=== PATIENT | male | born 1955 | race Caucasian/White ===

== ENCOUNTER → 2017-04-04 | Outpatient (CLI) | payer MEDICARE ==
--- NOTE | 2017-04-11 12:54 | P.ARTDOP ---
Arterial Doppler LOWER EXTREMITY ARTERIAL DOPPLER: DATE OF SERVICE: 04/04/2017 Reason for study: Suspected PVD. Doppler waveforms: Multiphasic bilaterally throughout. Pulse volume recording: Normal configuration. Pressure gradients: None. Ankle-brachial indices: Greater than 1 bilaterally. Toe pressures: 129 on the right, 125 on the left Impression: Normal study.
== END | disposition home or self-care (01) ==
LOC: RADUSWWP 08:57
PROVIDERS: ATTEND Internal Medicine
DX: I73.9 Peripheral vascular disease, unspecified (principal); Z95.4 Presence of other heart-valve replacement
CPT/HCPCS: 93923

== ENCOUNTER → 2018-03-11 | Outpatient (CLI) | payer MEDICARE ==
[2018-03-11 09:30] LABS: INR 4.3 (<1.2); Prothrombin Time 38.7 sec (9.0-12.0)
== END | disposition home or self-care (01) ==
LOC: LABWHC1 08:51
PROVIDERS: ATTEND Internal Medicine Cardiovascular Disease
DX: Z95.2 Presence of prosthetic heart valve (principal)
CPT/HCPCS: 36415; 85610

== ENCOUNTER 2018-05-11 23:51 | Emergency (ER) | payer MEDICARE ==
--- NOTE | 2018-05-11 23:54 | ED ---
General Adult HPI - General Stated complaint: diabetic issue Time Seen by Provider: 05/11/18 23:54 - History of Present Illness Initial comments: Dru is a 63-year-old insulin-dependent diabetic male who presents the emergency department today for evaluation of altered mental status. Per the patient he used his regular doses of insulin today. He was out hunting throughout the day and maybe didn't eat his usual amount of food. Upon returning home from an unsuccessful hunting trip he does report he drank approximately 12 beers. Patient was drinking with his friend when his friend reported that he became somewhat sleepy and difficult to wake up so he called 911 for evaluation. Upon arrival patient was noted to be hypoglycemic with a blood glucose of only 67, she was given oral dose with significant improvement in his mental status. Patient was also noted to be somewhat hypothermic and admits to having been out in the cold all day hunting. - Related Data Allergies Allergy/AdvReac Type Severity Reaction Status Date / Time No Known Allergies Allergy Verified 05/12/18 01:30 Review of Systems ROS Statement: Those systems with pertinent positive or pertinent negative responses have been documented in the HPI. ROS Other: All systems not noted in ROS Statement are negative. General Exam - General Exam Comments Initial Comments: Physical Exam GENERAL: Patient is well-developed and well-nourished. Patient is nontoxic and well- hydrated and is in no distress. HENT: Normocephalic, Atraumatic. EYES: PERRL, EOMI PULMONARY: Unlabored respirations. No audible rales rhonchi or wheezing was noted. CARDIOVASCULAR: There is a regular rate and rhythm without any murmurs gallops or rubs. ABDOMEN: Soft and nontender with normal bowel sounds. SKIN: Skin is clear with no lesions or rashes and otherwise unremarkable. : Deferred NEUROLOGIC: Patient is alert and oriented x3. Moving all extremities spontaneously MUSCULOSKELETAL: Normal extremities with adequate strength and full range of motion. No lower extremity swelling or edema. No calf tenderness. PSYCHIATRIC: Normal psychiatric evaluation. Limitations: no limitations Course Vital Signs 05/11/18 23:55 Pulse Rate 74 Respiratory 18 Rate Blood Pressure 141/76 O2 Sat by Pulse 100 Oximetry EKG Findings - EKG Comments: EKG Findings:: EKG obtained at 12:42 AM, rate is 70, rhythm is sinus, there is left axis deviation with LVH Jenny normal intervals, DE 186, QRS 112, QTC 466. There are no acute ST elevations or depressions no evidence of acute ischemia or infarction. Medical Decision Making - Medical Decision Making The patient was seen and evaluated, history was obtained from the patient, EMS and the patient's son at bedside Patient's son at bedside states that a few years ago the patient's brother had a stroke while they were hunting and [place] to obtain medical care and subsequently . Therefore the patient does have some high anxiety about hunting trips. Patient has been drinking, not eating enough calories in using his insulin. He did have an episode of altered mental status and was noted to be hypoglycemic. Altered mental status resolved with oral glucose. Labs and imaging were ordered IV fluids infusing Labs with no significant abnormalities, patient remained awake, alert, oriented without any complaints or his ED stay. Repeat blood glucose was again stable. At this time I feel the patient is stable for discharge home. All questions pertaining to care were answered the best my ability, return parameters were discussed and the patient was discharged home in stable condition. - Lab Data Result diagrams: 05/12/18 00:40 05/12/18 00:40 Lab Results 05/12/18 05/12/18 05/12/18 Range/Units 00:40 00:40 00:40 WBC 12.5 H (3.8-10.6) k/uL RBC 4.52 (4.30-5.90) m/uL Hgb 14.9 (13.0-17.5) gm/dL Hct 43.7 (39.0-53.0) % MCV 96.7 (80.0-100.0) fL MCH 33.0 (25.0-35.0) pg MCHC 34.1 (31.0-37.0) g/dL RDW 13.9 (11.5-15.5) % Plt Count 233 (150-450) k/uL Neutrophils % 84 % Lymphocytes % 7 % Monocytes % 7 % Eosinophils % 1 % Basophils % 0 % Neutrophils # 10.6 H (1.3-7.7) k/uL Lymphocytes # 0.9 L (1.0-4.8) k/uL Monocytes # 0.9 (0-1.0) k/uL Eosinophils # 0.1 (0-0.7) k/uL Basophils # 0.0 (0-0.2) k/uL PT 27.6 H (9.0-12.0) sec INR 3.1 H (<1.2) APTT 32.2 H (22.0-30.0) sec Sodium 134 L (137-145) mmol/L Potassium 4.0 (3.5-5.1) mmol/L Chloride 101 (98-107) mmol/L Carbon Dioxide 21 L (22-30) mmol/L Anion Gap 12 mmol/L BUN 23 H (9-20) mg/dL Creatinine 1.08 (0.66-1.25) mg/dL Est GFR (CKD-EPI)AfAm 83 (>60 ml/min/1.73 sqM) Est GFR (CKD-EPI)NonAf 72 (>60 ml/min/1.73 sqM) Glucose 106 H (74-99) mg/dL POC Glucose (mg/dL) (75-99) mg/dL POC Glu Blood Bank Laboratory Technologist ID Calcium 8.6 (8.4-10.2) mg/dL Total Bilirubin 0.4 (0.2-1.3) mg/dL AST 36 (17-59) U/L ALT 39 (21-72) U/L Alkaline Phosphatase 101 (38-126) U/L Troponin I (0.000-0.034) ng/mL Total Protein 6.5 (6.3-8.2) g/dL Albumin 4.0 (3.5-5.0) g/dL 05/12/18 05/12/18 05/12/18 Range/Units 00:40 00:45 02:37 WBC (3.8-10.6) k/uL RBC (4.30-5.90) m/uL Hgb (13.0-17.5) gm/dL Hct (39.0-53.0) % MCV (80.0-100.0) fL MCH (25.0-35.0) pg MCHC (31.0-37.0) g/dL RDW (11.5-15.5) % Plt Count (150-450) k/uL Neutrophils % % Lymphocytes % % Monocytes % % Eosinophils % % Basophils % % Neutrophils # (1.3-7.7) k/uL Lymphocytes # (1.0-4.8) k/uL Monocytes # (0-1.0) k/uL Eosinophils # (0-0.7) k/uL Basophils # (0-0.2) k/uL PT (9.0-12.0) sec INR (<1.2) APTT (22.0-30.0) sec Sodium (137-145) mmol/L Potassium (3.5-5.1) mmol/L Chloride (98-107) mmol/L Carbon Dioxide (22-30) mmol/L Anion Gap mmol/L BUN (9-20) mg/dL Creatinine (0.66-1.25) mg/dL Est GFR (CKD-EPI)AfAm (>60 ml/min/1.73 sqM) Est GFR (CKD-EPI)NonAf (>60 ml/min/1.73 sqM) Glucose (74-99) mg/dL POC Glucose (mg/dL) 117 H 152 H (75-99) mg/dL POC Glu Blood Bank Laboratory Technologist Bisi Farr Joanna Calcium (8.4-10.2) mg/dL Total Bilirubin (0.2-1.3) mg/dL AST (17-59) U/L ALT (21-72) U/L Alkaline Phosphatase (38-126) U/L Troponin I 0.023 (0.000-0.034) ng/mL Total Protein (6.3-8.2) g/dL Albumin (3.5-5.0) g/dL Disposition Clinical Impression: Hypoglycemia associated with diabetes Disposition: HOME SELF-CARE Condition: Good Instructions: Hypoglycemia in a Person with Diabetes (ED) Is patient prescribed a controlled substance at d/c from ED?: No Referrals: Gino Dang MD [Primary Care Provider] - 1-2 days
[2018-05-12 00:21] VITALS: BP 141/76; PULSE 74
[2018-05-12] MEDS ORDERED: SODIUM CHLORIDE 0.9% 1,000 ML IV ONE (00:23)
[2018-05-12 00:49] LABS: Glucose,Whole Blood 117 mg/dL (75-99)
[2018-05-12 00:58] LABS: Basophils % (A) 0 %; Eosinophils # (A) 0.1 k/uL (0-0.7); Eosinophils % (A) 1 %; HCT 43.7 % (39.0-53.0); HGB 14.9 gm/dL (13.0-17.5); Lymphocytes # (A) 0.9 k/uL (1.0-4.8); Lymphocytes % (A) 7 %; MCHC 34.1 g/dL (31.0-37.0); MCV 96.7 fL (80.0-100.0); Mean Platelet Volume 6.8; Monocytes # (A) 0.9 k/uL (0-1.0); Monocytes % (A) 7 %; Neutrophils # (A) 10.6 k/uL (1.3-7.7); Neutrophils % (A) 84 %; Platelet Count 233 k/uL (150-450); RBC 4.52 m/uL (4.30-5.90); RDW 13.9 % (11.5-15.5); WBC 12.5 k/uL (3.8-10.6)
[2018-05-12 00:59] LABS: INR 3.1 (<1.2); Prothrombin Time 27.6 sec (9.0-12.0)
[2018-05-12 01:00] LABS: Calcium 8.6 mg/dL (8.4-10.2); Partial Thromboplastin Time 32.2 sec (22.0-30.0); Total Bilirubin 0.4 mg/dL (0.2-1.3); Total Protein 6.5 g/dL (6.3-8.2)
[2018-05-12 02:51] LABS: Glucose,Whole Blood 152 mg/dL (75-99)
[2018-05-12 03:16] VITALS: RESP 17
[2018-05-12 03:17] VITALS: TEMP 97.6
== END 2018-05-12 03:10 | disposition home or self-care (01) ==
LOC: EC 23:51
DX: E11.649 Type 2 diabetes mellitus with hypoglycemia without coma (principal); Z79.4 Long term (current) use of insulin
CPT/HCPCS: 36415; 80053; 84484; 85025; 85610; 85730; 93005; 96360; 99285

== ENCOUNTER → 2018-12-30 | Outpatient (CLI) | payer MEDICARE ==
[2018-12-30 11:31] LABS: HGB 14.4 gm/dL (13.0-17.5); MCH 31.4 pg (25.0-35.0); MCHC 33.4 g/dL (31.0-37.0); Mean Platelet Volume 7.2; Platelet Count 232 k/uL (150-450); RBC 4.58 m/uL (4.30-5.90); RDW 15.1 % (11.5-15.5)
[2018-12-30 11:44] LABS: INR 3.9 (<1.2); Prothrombin Time 37.1 sec (9.0-12.0)
[2018-12-30 16:25] LABS: African American GFR (CKD) 73.1 (60.0-200.0); Albumin/Globulin Ratio 2.35 (1.60-3.17); Calcium 9.3 mg/dL (8.7-10.3); Globulin 1.7 g/dL (1.6-3.3); LDL Cholesterol,Calculated 86.6 mg/dL (0.0-131.0); Potassium 5.1 mmol/L (3.5-5.5); Total Bilirubin 0.5 mg/dL (0.2-1.2); Total Protein 5.7 g/dL (6.2-8.2); VLDL Calculation 34.4 mg/dL (5.00-40.00)
== END | disposition home or self-care (01) ==
LOC: LABWHC1 10:29
PROVIDERS: ATTEND Internal Medicine Cardiovascular Disease
DX: E78.2 Mixed hyperlipidemia (principal); I25.10 Atherosclerotic heart disease of native coronary artery without angina pectoris
CPT/HCPCS: 36415; 80053; 80061; 82550; 85027; 85610

== ENCOUNTER → 2022-07-18 | Outpatient (CLI) | payer MEDICARE ==
--- NOTE | 2022-07-18 14:58 | P.SLEEP ---
History of Present Illness H&P Date: 07/18/22 Chief Complaint: Sleep apnea This is a 67-year-old male patient who was referred to me by his primary care physician due to concerns of sleep apnea. At the same time, his credit portfolio manager wanted him to have a sleep evaluation based on his history of cardiac disease and valvular heart disease. In summary, this patient is known to have loud snoring. He has been sleeping alone as the patient is and were not sure if there are any apneas occurring at nighttime during sleep. He wakes up excessively fatigued and sleepy and at times he grinds on his teeth and he wakes up with a dry mouth. He goes to bed at around 11 PM and he wakes up 4:30 AM in the morning. He averages around 5 hours of sleep. Nevertheless, he takes naps during the day and he averages approximately 1 or 2 naps and these are long naps that may last up to one hour. It takes a few minutes to fall asleep. No sleep paralysis. No hallucinations. No cataplexy. He is morbidly obese and is trying to lose weight. He has lost around 25 pounds over this past 1 year. The patient has no restlessness and lower extremities. No body aches or pains. No anxiety. No depression. Some trace edema in lower extremities and the patient is maintained on diuretics. He has been waking up a few times the middle of the night for urination. His current Magnet score is at 17 and the patient has no history of any motor vehicle accident because of feeling drowsy or sleepy. He is currently retired. Review of Systems Constitutional: Reports daytime sleepiness, Reports fatigue, Reports weight loss Eyes: denies as per HPI, denies blurred vision, denies bulging eye, denies decreased vision, denies diplopia, denies discharge, denies dry eye, denies irritation, denies itching, denies pain, denies photophobia, denies loss of peripheral vision, denies loss of vision, denies tunnel vision/blind spots Ears: deny: decreased hearing, ear discharge, earache, tinnitus Ears, nose, mouth and throat: Reports as per HPI Breasts: absent: as per HPI, gynecomastia Cardiovascular: Reports as per HPI, Reports dyspnea on exertion Respiratory: Reports snoring Gastrointestinal: Reports as per HPI Genitourinary: Reports as per HPI Musculoskeletal: Reports as per HPI Musculoskeletal: absent: ankle pain, ankle stiffness, ankle swelling Integumentary: Reports as per HPI Neurological: Reports as per HPI Psychiatric: Reports as per HPI Endocrine: Reports as per HPI Hematologic/Lymphatic: Reports as per HPI Allergic/Immunologic: Reports as per HPI Past Medical History Past Medical History: Diabetes Mellitus, Hypertension, Renal Disease (Chronic stage III kidney disease), Thyroid Disorder Additional Past Medical History / Comment(s): History of aortic replacement/mechanical valve and his surgery was done back in the year 1999, gout, obesity, hypertension, hyperlipidemia, hypothyroidism History of Any Multi-Drug Resistant Organisms: None Reported Additional Past Surgical History / Comment(s): Aortic Heart valve replacement 1999, pericardiocentesis, varicose vein stripping from the legs Past Psychological History: No Psychological Hx Reported Past Alcohol Use History: Occasional Past Drug Use History: None Reported Medications and Allergies Home Medications and Allergies Comment(s): Lantus insulin along with NovoLog sliding scale coverage Levothyroxine 25 g by mouth daily Allopurinol 300 mg by mouth daily Norvasc 10 mg by mouth daily Labetalol 300 mg by mouth daily Hydrochlorothiazide 25 mg by mouth daily Singulair 10 mg by mouth daily Olmesartan 40 mg by mouth daily pravastatin 20 mg by mouth daily hydralazine 25 mg by mouth daily Lasix 40 mg by mouth daily Coumadin 5 mg by mouth daily Allergies Allergy/AdvReac Type Severity Reaction Status Date / Time No Known Allergies Allergy Verified 05/12/18 01:30 Physical Exam BP is 145 or 64 with a pulse of 76 and respiration of 16 and the patient has a temperature of 97.9 and oxygen saturation 97%. Neck is 19 inches, Magnet score is at 17, body weight is 273 pounds and a body mass index is 38. The patient appeared well nourished and normally developed. Vital signs as documented. Head exam is unremarkable. No scleral icterus or corneal arcus noted. Neck is without jugular venous distension, thyromegaly, or carotid bruits. Carotid upstrokes are brisk bilaterally. Patient has a Mallampati class IV with significant crowding of the posterior pharynx Lungs are clear to auscultation and percussion. Cardiac exam reveals the PMI to be normally sized and situated. Rhythm is regular. First and second heart sounds normal. No murmurs, rubs or gallops. The patient has an aortic valve click related to a mechanical aortic valve. Abdominal exam reveals normal bowel sounds, no masses, no organomegaly and no aortic enlargement. Extremities are nonedematous and both femoral and pedal pulses are normal.Examination of the skin revealed no evidence of significant rashes, suspicious appearing nevi or other concerning lesions.Neurologically, the patient is awake and alert and the patient does not have any focal neurological deficit. Cranial nerves are essentially intact. Assessment and Plan Plan: Chronic hypersomnia along with loud snoring, obesity and significant crowding of the posterior pharynx and a Mallampati class IV and a high clinical likelihood for obstructive sleep apnea. 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 and stage III chronic kidn ey disease History of aortic valve replacement and the patient has a mechanical aortic valve in place maintain on left lung and the coagulation with warfarin Diabetes mellitus Hypertension Gout Hypothyroidism Plan Encourage weight loss Optimize sleep hygiene measures Avoid taking naps during the day and consolidate sleeping hours at nighttime only Continue cardiac medications Titrate control of blood sugars Screening polysomnogram to evaluate this patient for obstructive sleep apnea and treat accordingly We'll continue to follow Sleep Note - Sleep Note Sleep Note: Temperature: Pulse Rate: Respiratory Rate: Blood Pressure: SpO2: Height: Weight: BMI: Neck Circumference:
== END ==
LOC: SLEEP 13:39
PROVIDERS: ATTEND Internal Medicine Critical Care Medicine
DX: G47.10 Hypersomnia, unspecified (principal); E66.9 Obesity, unspecified; E11.22 Type 2 diabetes mellitus with diabetic chronic kidney disease; N18.30 Chronic kidney disease, stage 3 unspecified; Z86.79 Personal history of other diseases of the circulatory system; I12.9 Hypertensive chronic kidney disease with stage 1 through stage 4 chronic kidney disease, or unspecified chronic kidney disease; M10.9 Gout, unspecified; E03.9 Hypothyroidism, unspecified; Z68.38 Body mass index [BMI] 38.0-38.9, adult; E78.5 Hyperlipidemia, unspecified; Z79.4 Long term (current) use of insulin; Z79.890 Hormone replacement therapy
CPT/HCPCS: 99202

== ENCOUNTER 2023-03-31 16:26 | Observation (INO) | payer MEDICARE ==
--- NOTE | 2023-03-31 16:59 | ED ---
General Adult HPI - General Chief complaint: Syncope Stated complaint: Syncope Time Seen by Provider: 03/31/23 16:30 Source: patient, EMS, RN notes reviewed Mode of arrival: EMS Limitations: no limitations - History of Present Illness Initial comments: Patient is a pleasant 67-year-old male presenting to the emergency department following a syncopal episode. Episode occurred while he was sitting down at a table with friends. Patient does admit to drinking some alcohol. Patient woke up on the floor. Patient states he drank about 5 beers which is somewhat a large amount for him. Patient denies any injury. No headache. No confusion. No chest or back pain. No abdominal pain or dyspnea. No history of similar symptoms previously. patient states he was sweaty after the episode. - Related Data Allergies Allergy/AdvReac Type Severity Reaction Status Date / Time No Known Allergies Allergy Verified 03/31/23 16:49 Review of Systems ROS Statement: Those systems with pertinent positive or pertinent negative responses have been documented in the HPI. ROS Other: All systems not noted in ROS Statement are negative. Constitutional: Denies: fever Eyes: Denies: eye pain ENT: Denies: ear pain Respiratory: Denies: dyspnea Cardiovascular: Denies: chest pain Musculoskeletal: Denies: back pain Neurological: Denies: headache, weakness, confusion Past Medical History Past Medical History: Diabetes Mellitus, Hypertension, Renal Disease, Thyroid Disorder Additional Past Medical History / Comment(s): History of aortic replacement/mechanical valve and his surgery was done back in the year 1999, gout, obesity, hypertension, hyperlipidemia, hypothyroidism History of Any Multi-Drug Resistant Organisms: None Reported Additional Past Surgical History / Comment(s): Aortic Heart valve replacement 1999, pericardiocentesis, varicose vein stripping from the legs Past Psychological History: No Psychological Hx Reported Past Alcohol Use History: Occasional Past Drug Use History: None Reported General Exam Limitations: no limitations General appearance: alert, in no apparent distress Head exam: Present: atraumatic, normocephalic Eye exam: Present: normal appearance, PERRL, EOMI ENT exam: Present: normal oropharynx Neck exam: Present: normal inspection. Absent: tenderness Respiratory exam: Present: normal lung sounds bilaterally Cardiovascular Exam: Present: regular rate, normal rhythm, systolic murmur Expanded Peripheral pulses: 2+: Radial (R), Radial (L), Dorsalis Pedis (R), Dorsalis Pedis (L) GI/Abdominal exam: Present: soft. Absent: tenderness Extremities exam: Present: normal inspection. Absent: pedal edema, calf tenderness Neurological exam: Present: alert, oriented X3, CN II-XII intact. Absent: motor sensory deficit Expanded Neurological exam: Present: protecting the airway Patient oriented to: Present: person, place, time Speech: Present: fluid speech Cranial nerves: EOM's Intact: Normal Motor strength exam: RUE: 5, LUE: 5, RLE: 5, LLE: 5 Eye Response: (4) open spontaneously Motor Response: (6) obeys commands Verbal Response: (5) oriented Psychiatric exam: Present: normal affect, normal mood Skin exam: Present: normal color Course Vital Signs 03/31/23 03/31/23 03/31/23 16:45 17:00 17:30 Temperature 97.8 F Pulse Rate 84 83 89 Respiratory 18 19 20 Rate Blood Pressure 125/52 125/52 128/55 O2 Sat by Pulse 95 96 98 Oximetry 03/31/23 03/31/23 18:00 18:30 Temperature Pulse Rate 88 88 Respiratory 20 19 Rate Blood Pressure 136/63 137/66 O2 Sat by Pulse 97 98 Oximetry EKG Findings - EKG Results: EKG: interpreted by ERMD (Left axis.), sinus rhythm, normal QRS, normal ST/T Medical Decision Making - Medical Decision Making Was pt. sent in by a medical professional or institution (, PA, BAG[employer]ER, urgent care, hospital, or longterm...) When possible be specific @ -No Did you speak to anyone other than the patient for history (EMS, parent, family, police, friend...)? What history was obtained from this source @ -No Did you review nursing and triage notes (agree or disagree)? Why? @ -I reviewed and agree with nursing and triage notes Were old charts reviewed (outside hosp., previous admission, EMS record, old EKG, old radiological studies, urgent care reports/EKG's, longterm records)? Report findings @ -Previous labs reviewed from previous visits and admissions Differential Diagnosis (chest pain, altered mental status, abdominal pain women, abdominal pain men, vaginal bleeding, weakness, fever, dyspnea, syncope, headache, dizziness, GI bleed, back pain, seizure, CVA, palpatations, mental health, musculoskeletal)? @ -Differential Syncope: Valvular disease, hypertrophic cardiomyopathy, pulmonary embolism, tamponade, tachycardia, bradycardia, [place], hypovolemia, hemorrhage, dissection, anemia, intracranial hemorrhage, seizure, hypoglycemia, carbon monoxide poisoning, this is not meant to be an all-inclusive list. EKG interpreted by me (3pts min.). @ -As above X-rays interpreted by me (1pt min.). @ -Chest x-ray without acute abnormality CT interpreted by me (1pt min.). @ -Report reviewed U/S interpreted by me (1pt. min.). @ -None done What testing was considered but not performed or refused? (CT, X-rays, U/S, labs)? Why? @ -None What meds were considered but not given or refused? Why? @ -None Did you discuss the management of the patient with other professionals (professionals i.e. , PA, B[employer]ER, lab, RT, psych nurse, social sciences chair, prisoner classification interviewer, teacher, public affairs officer, skilled nursing case manager)? Give summary @ -Case was discussed with practitioner Kimberly Enciso who will admit with Dr. Lu, covering for Dr. Dang, time. She does not feel consults needed at this time. Was smoking cessation discussed for >3mins.? @ -No Was critical care preformed (if so, how long)? @ -No Were there social determinants of health that impacted care today? How? (Homelessness, low income, unemployed, alcoholism, drug addiction, transportation, low edu. Level, literacy, decrease access to med. care, detention, rehab)? @ -No Was there de-escalation of care discussed even if they declined (Discuss DNR or withdrawal of care, Hospice)? DNR status @ -No What co-morbidities impacted this encounter? (DM, HTN, Smoking, COPD, CAD, Cancer, CVA, ARF, Chemo, Hep., AIDS, mental health diagnosis, sleep apnea, morbid obesity)? @ -None Was patient admitted / discharged? Hospital course, mention meds given and route, prescriptions, significant lab abnormalities, going to OR and other p ertinent info. @ -Patient reevaluated. Patient and family updated. Patient has prerenal azotemia and syncope. Patient will be hydrated and admitted. Admission orders written. Undiagnosed new problem with uncertain prognosis? @ -No Drug Therapy requiring intensive monitoring for toxicity (Heparin, Nitro, Insulin, Cardizem)? @ -No Were any procedures done? @ -No Diagnosis/symptom? @ -Syncope, prerenal azotemia Acute, or Chronic, or Acute on Chronic? @ -Acute, acute Uncomplicated (without systemic symptoms) or Complicated (systemic symptoms)? @ -default Side effects of treatment? @ -No Exacerbation, Progression, or Severe Exacerbation? @ -No Poses a threat to life or bodily function? How? (Chest pain, [place], [place], pneumonia, PE, COPD, DKA, ARF, appy, cholecystitis, CVA, Diverticulitis, Homicidal, Suicidal, threat to staff... and all critical care pts) @ -No - Lab Data Result diagrams: 03/31/23 17:00 03/31/23 17:00 Lab Results 03/31/23 03/31/23 03/31/23 Range/Units 17:00 17:00 17:00 WBC 8.0 (3.8-10.6) k/uL RBC 2.67 L (4.30-5.90) m/uL Hgb 9.0 L (13.0-17.5) gm/dL Hct 26.4 L (39.0-53.0) % MCV 99.1 (80.0-100.0) fL MCH 33.7 (25.0-35.0) pg MCHC 34.0 (31.0-37.0) g/dL RDW 14.7 (11.5-15.5) % Plt Count 181 (150-450) k/uL MPV 8.2 Neutrophils % 83 % Lymphocytes % 11 % Monocytes % 5 % Eosinophils % 1 % Basophils % 0 % Neutrophils # 6.6 (1.3-7.7) k/uL Lymphocytes # 0.9 L (1.0-4.8) k/uL Monocytes # 0.4 (0-1.0) k/uL Eosinophils # 0.1 (0-0.7) k/uL Basophils # 0.0 (0-0.2) k/uL Macrocytosis Slight PT (9.0-12.0) sec INR (<1.2) APTT (22.0-30.0) sec D-Dimer (<0.60) mg/L FEU Sodium 137 (137-145) mmol/L Potassium 4.5 (3.5-5.1) mmol/L Chloride 101 (98-107) mmol/L Carbon Dioxide 23 (22-30) mmol/L Anion Gap 13 mmol/L BUN 82 H (9-20) mg/dL Creatinine 2.76 H (0.66-1.25) mg/dL Est GFR (CKD-EPI)AfAm 26 (>60 ml/min/1.73 sqM) Est GFR (CKD-EPI)NonAf 22 (>60 ml/min/1.73 sqM) Glucose 132 H (74-99) mg/dL Calcium 9.0 (8.4-10.2) mg/dL Magnesium 2.0 (1.6-2.3) mg/dL Total Bilirubin 0.4 (0.2-1.3) mg/dL AST 25 (17-59) U/L ALT 37 (4-49) U/L Alkaline Phosphatase 95 (38-126) U/L Troponin I 0.016 (0.000-0.034) ng/mL Total Protein 6.2 L (6.3-8.2) g/dL Albumin 4.1 (3.5-5.0) g/dL Serum Alcohol mg/dL 03/31/23 03/31/23 Range/Units 17:49 18:27 WBC (3.8-10.6) k/uL RBC (4.30-5.90) m/uL Hgb (13.0-17.5) gm/dL Hct (39.0-53.0) % MCV (80.0-100.0) fL MCH (25.0-35.0) pg MCHC (31.0-37.0) g/dL RDW (11.5-15.5) % Plt Count (150-450) k/uL MPV Neutrophils % % Lymphocytes % % Monocytes % % Eosinophils % % Basophils % % Neutrophils # (1.3-7.7) k/uL Lymphocytes # (1.0-4.8) k/uL Monocytes # (0-1.0) k/uL Eosinophils # (0-0.7) k/uL Basophils # (0-0.2) k/uL Macrocytosis PT 25.9 H (9.0-12.0) sec INR 2.7 H (<1.2) APTT 30.9 H (22.0-30.0) sec D-Dimer 0.38 (<0.60) mg/L FEU Sodium (137-145) mmol/L Potassium (3.5-5.1) mmol/L Chloride (98-107) mmol/L Carbon Dioxide (22-30) mmol/L Anion Gap mmol/L BUN (9-20) mg/dL Creatinine (0.66-1.25) mg/dL Est GFR (CKD-EPI)AfAm (>60 ml/min/1.73 sqM) Est GFR (CKD-EPI)NonAf (>60 ml/min/1.73 sqM) Glucose (74-99) mg/dL Calcium (8.4-10.2) mg/dL Magnesium (1.6-2.3) mg/dL Total Bilirubin (0.2-1.3) mg/dL AST (17-59) U/L ALT (4-49) U/L Alkaline Phosphatase (38-126) U/L Troponin I (0.000-0.034) ng/mL Total Protein (6.3-8.2) g/dL Albumin (3.5-5.0) g/dL Serum Alcohol <10 mg/dL Disposition Clinical Impression: Prerenal azotemia, Syncope Disposition: ADMITTED IP TO THIS HOSP Is patient prescribed a controlled substance at d/c from ED?: No Referrals: Gino Dang MD [Primary Care Provider] - 1-2 days Time of Disposition: 19:37
[2023-03-31 17:11] LABS: Basophils % (A) 0 %; Eosinophils # (A) 0.1 k/uL (0-0.7); Eosinophils % (A) 1 %; HCT 26.4 % (39.0-53.0); Lymphocytes # (A) 0.9 k/uL (1.0-4.8); Lymphocytes % (A) 11 %; MCH 33.7 pg (25.0-35.0); MCV 99.1 fL (80.0-100.0); Macrocytosis Slight; Mean Platelet Volume 8.2; Monocytes # (A) 0.4 k/uL (0-1.0); Monocytes % (A) 5 %; Neutrophils # (A) 6.6 k/uL (1.3-7.7); Neutrophils % (A) 83 %; Platelet Count 181 k/uL (150-450); RBC 2.67 m/uL (4.30-5.90); RDW 14.7 % (11.5-15.5)
[2023-03-31 17:25] LABS: ALT 37 U/L (4-49); AST 25 U/L (17-59); African American GFR (CKD) 26 (>60 ml/min/1.73 sqM); Albumin 4.1 g/dL (3.5-5.0); Alkaline Phosphatase 95 U/L (38-126); Anion Gap 13 mmol/L; Blood Urea Nitrogen 82 mg/dL (9-20); Carbon Dioxide 23 mmol/L (22-30); Chloride 101 mmol/L (98-107); Glucose 132 mg/dL (74-99); Non-African American GFR(CKD) 22 (>60 ml/min/1.73 sqM); Potassium 4.5 mmol/L (3.5-5.1); Sodium 137 mmol/L (137-145); Total Bilirubin 0.4 mg/dL (0.2-1.3); Total Protein 6.2 g/dL (6.3-8.2)
--- NOTE | 2023-03-31 17:39 | CT ---
EXAMINATION TYPE: CT brain wo con DATE OF EXAM: 03/31/2023 COMPARISON: None HISTORY: Syncope with a family history of stroke. CT DLP: 1303.4 mGycm Automated exposure control for dose reduction was used. FINDINGS: The ventricles, basal cisterns and sulci over the convexities within normal limits and there is no ma ss effect or shift of midline structures. No abnormal density is seen throughout the brain parenchyma and there is no acute intra or extra-axia l hemorrhage. The posterior fossa including the brainstem, fourth ventricle and cerebellar pontine angles appear no rmal. The intraorbital contents appear normal and symmetric. Visualized paranasal sinuses and mastoid air cells are well aerated although there is mild mucosal in flammation in the maxillary sinuses. IMPRESSION: 1. No acute bleed or mass effect. 2. Mild chronic sinusitis of the maxillary sinuses.
[2023-03-31 18:14] LABS: INR 2.7 (<1.2); Partial Thromboplastin Time 30.9 sec (22.0-30.0); Prothrombin Time 25.9 sec (9.0-12.0)
--- NOTE | 2023-03-31 18:31 | XR ---
EXAMINATION TYPE: XR chest 2V DATE OF EXAM: 03/31/2023 5:14 PM CLINICAL INDICATION:Male, 67 years old with history of syncope; [facility] COMPARISON: None. TECHNIQUE: XR chest 2V Frontal and lateral views of the chest. FINDINGS: Lungs/Pleura: Lung volumes are slightly low without evidence for focal airspace consolidation, sizabl e effusion, or pneumothorax. Pulmonary vascularity: Unremarkable. Heart/mediastinum: Heart size upper limits of normal. Unremarkable mediastinal contours. Musculoskeletal: Multiple intact-appearing sternotomy wires. Multilevel degenerative changes of the s pine. Mild degenerative changes of the shoulders. No definite acute osseous abnormality evident. Other findings: None. Lines/Tubes: None. IMPRESSION: No evidence of an acute cardiopulmonary abnormality.
[2023-03-31] MEDS ORDERED: NALOXONE 0.4 MG/ML 1 ML VIAL IV PRN (19:38)
[2023-03-31] MEDS: SODIUM CHLORIDE 0.9% 1,000 ML IV SCH (20:59)
[2023-03-31] MEDS ORDERED: hydrALAZINE HCL 25 MG TAB PO SCH (22:00)
[2023-03-31] MEDS ORDERED: DEXTROSE 50% SYRINGE 50 ML IVP PRN ×2 (22:12)
[2023-03-31] MEDS: LABETALOL 100 MG TAB PO SCH (22:42)
[2023-03-31 22:43] LABS: Glucose,Whole Blood 143 mg/dL (70-110)
[2023-04-01] MEDS: SODIUM CHLORIDE 0.9% 1,000 ML IV SCH ×3 (05:06→14:45)
[2023-04-01 06:04] LABS: Glucose,Whole Blood 203 mg/dL (70-110)
[2023-04-01] MEDS: INSULIN ASPART (NovoLOG) 100 UNIT/ML VIAL SQ SCH ×4 (06:32→21:32)
[2023-04-01] MEDS: MONTELUKAST 10 MG TAB PO SCH (08:58)
[2023-04-01] MEDS: allopurinoL 300 MG TAB PO SCH (08:58)
[2023-04-01] MEDS: PRAVASTATIN SODIUM 20 MG TAB PO SCH (08:58)
[2023-04-01] MEDS: LEVOTHYROXINE 25 MCG TAB PO SCH (08:58)
[2023-04-01] MEDS: LABETALOL 100 MG TAB PO SCH ×2 (08:58→20:29)
[2023-04-01] MEDS ORDERED: amLODIPine 5 MG TAB PO SCH (09:00)
[2023-04-01 09:45] LABS: ALT 30 U/L (10-49); AST 16 U/L (14-35); Albumin 3.8 d/dL (3.8-4.9); Albumin/Globulin Ratio 2.71 Ratio (1.60-3.17); Alkaline Phosphatase 98 U/L (41-126); BUN/Creat Ratio 33.08 Ratio (12.00-20.00); Blood Urea Nitrogen 79.4 mg/dL (9.0-27.0); Calcium 8.6 mg/dL (8.7-10.3); Carbon Dioxide 25.7 mmol/L (21.6-31.8); Chloride 104 mmol/L (96-109); Globulin 1.4 d/dL (1.6-3.3); Glucose 176 mg/dL (70-110); Potassium 4.4 mmol/L (3.5-5.5); Sodium 140 mmol/L (135-145); Total Bilirubin 0.2 mg/dL (0.3-1.2); Total Protein 5.2 d/dL (6.2-8.2)
[2023-04-01 09:50] LABS: Basophils # (A) 0.04 X 10*3/uL (0.00-0.10); Basophils % (A) 0.6 %; Eosinophils # (A) 0.12 X 10*3/uL (0.04-0.35); Eosinophils % (A) 1.7 %; HCT 25.3 % (39.6-50.0); HGB 8.1 d/dL (13.0-17.0); Lymphocytes # (A) 0.98 X 10*3/uL (0.90-5.00); Lymphocytes % (A) 13.9 %; MCH 32.5 pg (27.0-32.0); MCV 101.6 FL (80.0-97.0); Mean Platelet Volume 11.2 FL (9.5-12.2); Monocytes # (A) 0.65 X 10*3/uL (0.20-1.00); Monocytes % (A) 9.2 %; NRBC Per 100 WBC 0 X 10*3/uL (0.00-0.01); Neutrophils # (A) 5.24 X 10*3/uL (1.80-7.70); Neutrophils % (A) 74.5 %; Platelet Count 185 X 10*3/uL (140-440); RBC 2.49 X 10*6/uL (4.40-5.60); RDW 14.3 % (11.5-14.5); WBC 7.04 X 10*3/uL (4.50-10.00)
[2023-04-01 10:50] LABS: INR 2.59 sec (0.93-1.11); Prothrombin Time 28.2 sec (9.9-11.9)
[2023-04-01 11:30] LABS: Glucose,Whole Blood 243 mg/dL (70-110)
[2023-04-01] MEDS ORDERED: DEXTROSE 50% SYRINGE 50 ML IVP PRN ×2 (13:54)
--- NOTE | 2023-04-01 13:54 | P.HPIM ---
History of Present Illness H&P Date: 04/01/23 This is a pleasant 67-year-old male with medical history of diabetes mellitus, hypertension, renal disease, thyroid disease, hyperlipidemia, obesity, gout, history of aortic valve replacement back in 1999 and has been maintained on Coumadin since. Patient presents to the hospital with syncopal episode states that he was out yesterday riding on a [id number] and had been to a couple bars with some friends he had about 3 beers. He reports being at the last restaurant when he just remembers waking up he does not remember happened prior to the syncopal episode. He denies hitting his head. He has no chest pain or shortness of breath and dizziness or lightheadedness. Patient does have elevate d creatinine on admission 2.67 states that this has been increasing outpatient he has a maintained on hydralazine and Norvasc with a normotensive blood pressure on admission. He is set up to see Dr. Wilhelm with nephrology outpatient in May. Additionally he has been having decreased hemoglobin with concern for a possible bleed does not report any black stool tarry stool or bloody emesis. Outpatient EGD was recommended by Dr. Shilpa Hong however his melter assistant Dr. Marti he did not clear the patient to stop his Coumadin for the procedure and patient is set up to have this EGD done at [facility] on . Patient does follow with his melter assistant every 6 months he has an appointment scheduled for the beginning of June. Patient was admitted to the hospital under medicine we will recommend to consult nephrology patient was started on IV normal saline for hydration. REVIEW OF SYSTEMS: CONSTITUTIONAL: No fever, no malaise, no fatigue. HEENT: No recent visual problems or hearing problems. Denied any sore throat. CARDIOVASCULAR: No chest pain, orthopnea, PND, no palpitations, no syncope. PULMONARY: No shortness of breath, no cough, no hemoptysis. GASTROINTESTINAL: No diarrhea, no nausea, no vomiting, no abdominal pain. NEUROLOGICAL: No headaches, no weakness, no numbness. HEMATOLOGICAL: Denies any bleeding or petechiae. GENITOURINARY: Denies any burning micturition, frequency, or urgency. MUSCULOSKELETAL/RHEUMATOLOGICAL: Denies any joint pain, swelling, or any muscle pain. ENDOCRINE: Denies any polyuria or polydipsia. The rest of the 14-point review of systems is negative. PHYSICAL EXAMINATION: GENERAL: The patient is alert and oriented x3, not in any acute distress. Well developed, well nourished. HEENT: Pupils are round and equally reacting to light. EOMI. No scleral icterus. No conjunctival pallor. Normocephalic, atraumatic. No pharyngeal erythema. No thyromegaly. CARDIOVASCULAR: S1 and S2 present. No murmurs, rubs, or gallops. PULMONARY: Chest is clear to auscultation, no wheezing or crackles. ABDOMEN: Soft, nontender, nondistended, normoactive bowel sounds. No palpable organomegaly. MUSCULOSKELETAL: No joint swelling or deformity. EXTREMITIES: No cyanosis, clubbing, or pedal edema. NEUROLOGICAL: Gross neurological examination did not reveal any focal deficits. SKIN: No rashes. Assessment Acute kidney injury prerenal likely due to acute dehydration and medication affect, baseline creatinine appears to be about 1.2, currently 2.76 on admission. Syncopal episode likely due to orthostatic changes, patient had been drinking alcohol and had not been drinking enough water. He is also on multiple blood pressure medications Diabetes Mellitus type 2 controlled Hypothyroidism Hx hyperlipidemia Hx hypertension Hx of aortic valve replacement anticoagulated with warfarin INR 2.5 GI prophylaxis Full Code Plan Decrease IV fluids to normal saline at 75 mls/hr Nephrology consultation Check urinalysis and renal ultrasound Follow up labs in AM Patient has been resumed on appropriate home medications would recommend to hold hydralazine at this time. The impression and plan of care has been dictated by Melissa Martienz, Nurse Practitioner as directed. Dr. Aly MD I have performed a history and physical examination and medical decision making of this patient, discussed the same with the dictator, and agree with the dictators assessment and plan as written, documented as a scribe. Based on total visit time, I have performed more than 50% of this visit. Past Medical History Past Medical History: Diabetes Mellitus, Hypertension, Renal Disease, Thyroid Disorder Additional Past Medical History / Comment(s): History of aortic replacement/mechanical valve and his surgery was done back in the year 1999, gout, obesity, hypertension, hyperlipidemia, hypothyroidism History of Any Multi-Drug Resistant Organisms: None Reported Additional Past Surgical History / Comment(s): Aortic Heart valve replacement 1999, pericardiocentesis, varicose vein stripping from the legs Past Psychological History: No Psychological Hx Reported Smoking Status: Never smoker Past Alcohol Use History: Occasional Past Drug Use History: None Reported Medications and Allergies Home Medications Medication Instructions Recorded Confirmed Type Furosemide [Lasix] 40 mg PO BID 03/31/23 03/31/23 History Insulin Aspart [NovoLOG Flexpen] See Protocol SQ AC-TID 03/31/23 03/31/23 History Insulin Glargine,Hum.rec.anlog 12 units SQ DAILY 03/31/23 03/31/23 History [Lantus Solostar Pen] Insulin Glargine,Hum.rec.anlog 24 units SQ HS 03/31/23 03/31/23 History [Lantus Solostar Pen] Labetalol HCl 300 mg PO TID 03/31/23 03/31/23 History Levothyroxine Sodium [Synthroid] 25 mcg PO DAILY 03/31/23 03/31/23 History Montelukast [Singulair] 10 mg PO DAILY 03/31/23 03/31/23 History Olmesartan Medoxomil 40 mg PO DAILY 03/31/23 03/31/23 History Pravastatin Sodium [Pravachol] 20 mg PO DAILY 03/31/23 03/31/23 History Warfarin [Coumadin] 5 mg PO DAILY 03/31/23 03/31/23 History allopurinoL [Zyloprim] 300 mg PO DAILY 03/31/23 03/31/23 History amLODIPine [Norvasc] 5 mg PO DAILY 03/31/23 03/31/23 History hydrALAZINE HCL [Apresoline] 25 mg PO TID 03/31/23 03/31/23 History hydroCHLOROthiazide [Hydrodiuril] 25 mg PO DAILY 03/31/23 03/31/23 History Allergies Allergy/AdvReac Type Severity Reaction Status Date / Time No Known Allergies Allergy Verified 03/31/23 20:17 Physical Exam Vitals: Vital Signs Temp Pulse Pulse Resp BP BP Pulse Ox 04/01/23 07:00 98.1 F 80 15 116/57 96 04/01/23 02:24 98.2 F 85 16 119/59 95 04/01/23 01:48 95 03/31/23 21:58 98.0 F 95 16 142/67 97 03/31/23 21:06 94 18 132/56 97 03/31/23 18:30 88 19 137/66 98 03/31/23 18:00 88 20 136/63 97 03/31/23 17:30 89 20 128/55 98 03/31/23 17:00 83 19 125/52 96 03/31/23 16:45 97.8 F 84 18 125/52 95 Intake and Output 03/31/23 04/01/23 04/01/23 22:59 06:59 14:59 Intake Total 118 Balance 118 Intake: Oral 118 Other: Voiding Method Toilet # Voids 2 Weight 113.398 kg Results CBC & Chem 7: 04/01/23 05:37 04/01/23 05:37 Labs: Abnormal Lab Results - Last 24 Hours (Table) 03/31/23 03/31/23 03/31/23 Range/Units 17:00 17:00 17:49 RBC 2.67 L (4.30-5.90) m/uL Hgb 9.0 L (13.0-17.5) gm/dL Hct 26.4 L (39.0-53.0) % MCV (80.0-97.0) FL MCH (27.0-32.0) pg Lymphocytes # 0.9 L (1.0-4.8) k/uL PT 25.9 H (9.0-12.0) sec INR 2.7 H (<1.2) APTT 30.9 H (22.0-30.0) sec BUN 82 H (9-20) mg/dL Creatinine 2.76 H (0.66-1.25) mg/dL Est GFR (CKD-EPI) (>=60) BUN/Creatinine Ratio (12.00-20.00) Ratio Glucose 132 H (74-99) mg/dL POC Glucose (mg/dL) (70-110) mg/dL Hemoglobin A1c (<=6.0) % Calcium (8.7-10.3) mg/dL Total Bilirubin (0.3-1.2) mg/dL Total Protein 6.2 L (6.3-8.2) g/dL Globulin (1.6-3.3) d/dL 03/31/23 04/01/23 04/01/23 Range/Units 22:41 05:37 05:37 RBC 2.49 L (4.30-5.90) m/uL Hgb 8.1 L (13.0-17.5) gm/dL Hct 25.3 L (39.0-53.0) % MCV 101.6 H (80.0-97.0) FL MCH 32.5 H (27.0-32.0) pg Lymphocytes # (1.0-4.8) k/uL PT (9.0-12.0) sec INR (<1.2) APTT (22.0-30.0) sec BUN 79.4 H (9-20) mg/dL Creatinine 2.4 H (0.66-1.25) mg/dL Est GFR (CKD-EPI) 28 L (>=60) BUN/Creatinine Ratio 33.08 H (12.00-20.00) Ratio Glucose 176 H (74-99) mg/dL POC Glucose (mg/dL) 143 H (70-110) mg/dL Hemoglobin A1c (<=6.0) % Calcium 8.6 L (8.7-10.3) mg/dL Total Bilirubin 0.2 L (0.3-1.2) mg/dL Total Protein 5.2 L (6.3-8.2) g/dL Globulin 1.4 L (1.6-3.3) d/dL 04/01/23 04/01/23 04/01/23 Range/Units 05:37 05:37 06:03 RBC (4.30-5.90) m/uL Hgb (13.0-17.5) gm/dL Hct (39.0-53.0) % MCV (80.0-97.0) FL MCH (27.0-32.0) pg Lymphocytes # (1.0-4.8) k/uL PT 28.2 H (9.0-12.0) sec INR 2.59 H (<1.2) APTT (22.0-30.0) sec BUN (9-20) mg/dL Creatinine (0.66-1.25) mg/dL Est GFR (CKD-EPI) (>=60) BUN/Creatinine Ratio (12.00-20.00) Ratio Glucose (74-99) mg/dL POC Glucose (mg/dL) 203 H (70-110) mg/dL Hemoglobin A1c 7.4 H (<=6.0) % Calcium (8.7-10.3) mg/dL Total Bilirubin (0.3-1.2) mg/dL Total Protein (6.3-8.2) g/dL Globulin (1.6-3.3) d/dL 04/01/23 Range/Units 11:27 RBC (4.30-5.90) m/uL Hgb (13.0-17.5) gm/dL Hct (39.0-53.0) % MCV (80.0-97.0) FL MCH (27.0-32.0) pg Lymphocytes # (1.0-4.8) k/uL PT (9.0-12.0) sec INR (<1.2) APTT (22.0-30.0) sec BUN (9-20) mg/dL Creatinine (0.66-1.25) mg/dL Est GFR (CKD-EPI) (>=60) BUN/Creatinine Ratio (12.00-20.00) Ratio Glucose (74-99) mg/dL POC Glucose (mg/dL) 243 H (70-110) mg/dL Hemoglobin A1c (<=6.0) % Calcium (8.7-10.3) mg/dL Total Bilirubin (0.3-1.2) mg/dL Total Protein (6.3-8.2) g/dL Globulin (1.6-3.3) d/dL Thrombosis Risk Factor Assmnt - Choose All That Apply Any of the Below Risk Factors Present?: Yes Each Factor Represents 1 point: Obesity (BMI >25) Other Risk Factors: Yes Each Risk Factor Represents 2 Points: Age 61-74 years Other congenital or acquired thrombophilia - If yes, enter type in comment: No Thrombosis Risk Factor Assessment Total Risk Factor Score: 3 Thrombosis Risk Factor Assessment Level: Moderate Risk Assessment and Plan Time with Patient: Less than 30
--- NOTE | 2023-04-01 15:06 | US ---
EXAMINATION TYPE: US kidneys/renal and bladder DATE OF EXAM: 04/01/2023 COMPARISON: NONE CLINICAL INDICATION: Male, 67 years old with history of JESS; Jess EXAM MEASUREMENTS: Right Kidney: 12.9 x 5.4 x 4.0 cm. There is mild thinning of the renal cortex. Left Kidney: 12.9 x 6.2 x 4.9 cm. There is mild thinning of the renal cortex. Right Kidney: possible stone mid = 0.7cm Left Kidney: anechoic area lower pole = 1.7 x 1.7 x 1.6cm Bladder: wnl No masses are identified. The urinary bladder is within normal limits. IMPRESSION: 1. No evidence of obstructive uropathy. 2. Nonobstructive 0.7 cm right renal calculus. 3. Findings consistent with medical renal disease.
--- NOTE | 2023-04-01 15:29 | P.NPCON ---
History of Present Illness - Reason for Consult Consult date: 04/01/23 acute renal failure - Chief Complaint Syncope - History of Present Illness 67-year-old gentleman coming to the hospital with the above complaints. He was sitting with his friends, on a chair felt lightheaded and the next thing was found on the floor. Denies any nausea vomiting diarrhea. No chest pain or shortness of breath. Baseline creatinine 1.2 MG per DL in 2019. He was supposed to see nephrology with Dr. Wilhelm as outpatient next month. He is on multiple antihypertensive medications including Lasix and hydrochlorothiazide. He has history of hypertension and diabetes for more than 20 years. He also has retinopathy needing laser injections to the eyes. Denies NSAID use or recent contrast studies. Review of Systems Constitutional: Reports as per HPI Past Medical History Past Medical History: Diabetes Mellitus, Hypertension, Renal Disease, Thyroid Disorder Additional Past Medical History / Comment(s): History of aortic replacement/mechanical valve and his surgery was done back in the year 1999, gout, obesity, hypertension, hyperlipidemia, hypothyroidism History of Any Multi-Drug Resistant Organisms: None Reported Additional Past Surgical History / Comment(s): Aortic Heart valve replacement 1999, pericardiocentesis, varicose vein stripping from the legs Past Psychological History: No Psychological Hx Reported Smoking Status: Never smoker Past Alcohol Use History: Occasional Past Drug Use History: None Reported Medications and Allergies Home Medications Medication Instructions Recorded Confirmed Type Furosemide [Lasix] 40 mg PO BID 03/31/23 03/31/23 History Insulin Aspart [NovoLOG Flexpen] See Protocol SQ AC-TID 03/31/23 03/31/23 History Insulin Glargine,Hum.rec.anlog 12 units SQ DAILY 03/31/23 03/31/23 History [Lantus Solostar Pen] Insulin Glargine,Hum.rec.anlog 24 units SQ HS 03/31/23 03/31/23 History [Lantus Solostar Pen] Labetalol HCl 300 mg PO TID 03/31/23 03/31/23 History Levothyroxine Sodium [Synthroid] 25 mcg PO DAILY 03/31/23 03/31/23 History Montelukast [Singulair] 10 mg PO DAILY 03/31/23 03/31/23 History Olmesartan Medoxomil 40 mg PO DAILY 03/31/23 03/31/23 History Pravastatin Sodium [Pravachol] 20 mg PO DAILY 03/31/23 03/31/23 History Warfarin [Coumadin] 5 mg PO DAILY 03/31/23 03/31/23 History allopurinoL [Zyloprim] 300 mg PO DAILY 03/31/23 03/31/23 History amLODIPine [Norvasc] 5 mg PO DAILY 03/31/23 03/31/23 History hydrALAZINE HCL [Apresoline] 25 mg PO TID 03/31/23 03/31/23 History hydroCHLOROthiazide [Hydrodiuril] 25 mg PO DAILY 03/31/23 03/31/23 History Allergies Allergy/AdvReac Type Severity Reaction Status Date / Time No Known Allergies Allergy Verified 03/31/23 20:17 Physical Exam Vitals: Vital Signs Temp Pulse Pulse Resp BP BP Pulse Ox 04/01/23 07:00 98.1 F 80 15 116/57 96 04/01/23 02:24 98.2 F 85 16 119/59 95 04/01/23 01:48 95 03/31/23 21:58 98.0 F 95 16 142/67 97 03/31/23 21:06 94 18 132/56 97 03/31/23 18:30 88 19 137/66 98 03/31/23 18:00 88 20 136/63 97 03/31/23 17:30 89 20 128/55 98 03/31/23 17:00 83 19 125/52 96 03/31/23 16:45 97.8 F 84 18 125/52 95 Intake and Output 04/01/23 04/01/23 04/01/23 06:59 14:59 22:59 Intake Total 718 Balance 718 Intake: Intake, IV Titration 600 Amount Sodium Chloride 0.9% 1, 600 000 ml @ 75 mls/hr IV . [id number] [facility] Rx#:[id number] Oral 118 Other: Voiding Method Toilet # Voids 2 No acute distress S1-S2 heard lungs clear No edema Results - Lab Results Most recent lab results Calcium 8.6 mg/dL (8.7-10.3) L 04/01/23 05:37 Magnesium 2.0 mg/dL (1.6-2.3) 03/31/23 17:00 04/01/23 05:37 04/01/23 05:37 Assessment and Plan Assessment: #1 acute kidney injury suspect prerenal/ATN with syncope -Baseline creatinine 1.2 MG per DL in 2019. -Renal ultrasound no hydronephrosis, nonobstructive calculi #2 suspected chronic kidney disease stage IIIB. Seems to be progressed from 2019. Suspect diabetic nephropathy #3 syncope suspect hypotension with multiple antihypertensive medications. #4 diabetes #5 anemia with chronic kidney disease. #6 hypertension with chronic kidney disease Plan: #1 renal function improving. Continue with IV fluids. #2 agree with holding multiple antihypertensive medications including diuretics. #3 decrease labetalol 100 mg 3 times a day with a goal blood pressure of 120-140 systolic #4 check urine analysis, microalbumin creatinine ratio. #5 avoid nephrotoxic agents and hypotensive episodes
[2023-04-01 16:57] LABS: Appearance,Urine Clear (Clear); Bilirubin,Urine Negative (Negative); Blood,Urine Negative (Negative); Color,Urine Colorless; Glucose,Urine (UA) Negative (Negative); Ketones,Urine Negative (Negative); Leukocyte Esterase,Urine Negative (Negative); Nitrite,Urine Negative (Negative); PH, Urine 6.5 (5.0-8.0); Protein,Urine Trace (Negative); Urobilinogen,Urine <2.0 mg/dL (<2.0)
[2023-04-01 17:41] LABS: Glucose,Whole Blood 196 mg/dL (70-110)
[2023-04-01 20:37] LABS: Glucose,Whole Blood 315 mg/dL (70-110)
[2023-04-02] MEDS: SODIUM CHLORIDE 0.9% 1,000 ML IV SCH ×3 (02:00→18:08)
[2023-04-02 05:56] LABS: Glucose,Whole Blood 141 mg/dL (70-110)
[2023-04-02] MEDS: INSULIN ASPART (NovoLOG) 100 UNIT/ML VIAL SQ SCH ×4 (05:58→21:15)
[2023-04-02] MEDS: MONTELUKAST 10 MG TAB PO SCH (08:56)
[2023-04-02] MEDS: LEVOTHYROXINE 25 MCG TAB PO SCH (08:56)
[2023-04-02] MEDS: PRAVASTATIN SODIUM 20 MG TAB PO SCH (08:56)
[2023-04-02] MEDS: FAMOTIDINE 20 MG TAB PO SCH (08:56)
[2023-04-02] MEDS: allopurinoL 300 MG TAB PO SCH (08:56)
[2023-04-02] MEDS: LABETALOL 100 MG TAB PO SCH ×3 (08:56→21:16)
--- NOTE | 2023-04-02 09:18 | P.PN ---
Subjective Patient is seen in follow-up for acute kidney injury. Creatinine 2.4 yesterday. Has been ambulating. No dizziness or falls. Hemodynamically stable. Orthostatics negative this morning. Vital signs are stable. General: No acute distress. HEENT: Head exam is unremarkable. LUNGS: No audible rhonchi or wheezes. HEART: Rate and Rhythm are regular. ABDOMEN: Nontender. EXTREMITITES: No edema. Objective - Vital Signs Vital signs: Vital Signs Temp 98.0 F 04/02/23 07:00 Pulse 82 04/02/23 08:53 Resp 16 04/02/23 08:53 BP 146/63 04/02/23 08:53 Pulse Ox 97 04/02/23 08:53 FiO2 Intake & Output 04/01/23 04/02/23 04/02/23 18:59 06:59 18:59 Intake Total 954 500 118 Output Total 1000 550 550 Balance -46 50 432 Intake: Intake, IV Titration 600 Amount Sodium Chloride 0.9% 1, 600 000 ml @ 75 mls/hr IV . [id number] [facility] Rx#:[id number] Oral 354 500 118 Output: Urine 500 550 550 Post Void Residual 500 Other: Voiding Method Toilet - Labs CBC & Chem 7: 04/01/23 05:37 04/01/23 05:37 Labs: Abnormal Lab Results - Last 24 Hours (Table) 04/01/23 04/01/23 04/01/23 Range/Units 05:37 05:37 05:37 RBC 2.49 L (4.40-5.60) X 10*6/uL Hgb 8.1 L (13.0-17.0) d/dL Hct 25.3 L (39.6-50.0) % MCV 101.6 H (80.0-97.0) FL MCH 32.5 H (27.0-32.0) pg PT (9.9-11.9) sec INR (0.93-1.11) sec BUN 79.4 H (9.0-27.0) mg/dL Creatinine 2.4 H (0.6-1.5) mg/dL Est GFR (CKD-EPI) 28 L (>=60) BUN/Creatinine Ratio 33.08 H (12.00-20.00) Ratio Glucose 176 H (70-110) mg/dL POC Glucose (mg/dL) (70-110) mg/dL Hemoglobin A1c 7.4 H (<=6.0) % Calcium 8.6 L (8.7-10.3) mg/dL Total Bilirubin 0.2 L (0.3-1.2) mg/dL Total Protein 5.2 L (6.2-8.2) d/dL Globulin 1.4 L (1.6-3.3) d/dL Urine Protein (Negative) 04/01/23 04/01/23 04/01/23 Range/Units 05:37 11:27 16:20 RBC (4.40-5.60) X 10*6/uL Hgb (13.0-17.0) d/dL Hct (39.6-50.0) % MCV (80.0-97.0) FL MCH (27.0-32.0) pg PT 28.2 H (9.9-11.9) sec INR 2.59 H (0.93-1.11) sec BUN (9.0-27.0) mg/dL Creatinine (0.6-1.5) mg/dL Est GFR (CKD-EPI) (>=60) BUN/Creatinine Ratio (12.00-20.00) Ratio Glucose (70-110) mg/dL POC Glucose (mg/dL) 243 H (70-110) mg/dL Hemoglobin A1c (<=6.0) % Calcium (8.7-10.3) mg/dL Total Bilirubin (0.3-1.2) mg/dL Total Protein (6.2-8.2) d/dL Globulin (1.6-3.3) d/dL Urine Protein Trace H (Negative) 04/01/23 04/01/23 04/02/23 Range/Units 17:39 20:36 05:55 RBC (4.40-5.60) X 10*6/uL Hgb (13.0-17.0) d/dL Hct (39.6-50.0) % MCV (80.0-97.0) FL MCH (27.0-32.0) pg PT (9.9-11.9) sec INR (0.93-1.11) sec BUN (9.0-27.0) mg/dL Creatinine (0.6-1.5) mg/dL Est GFR (CKD-EPI) (>=60) BUN/Creatinine Ratio (12.00-20.00) Ratio Glucose (70-110) mg/dL POC Glucose (mg/dL) 196 H 315 H 141 H (70-110) mg/dL Hemoglobin A1c (<=6.0) % Calcium (8.7-10.3) mg/dL Total Bilirubin (0.3-1.2) mg/dL Total Protein (6.2-8.2) d/dL Globulin (1.6-3.3) d/dL Urine Protein (Negative) Assessment and Plan Plan: Assessment: 1. Acute kidney injury secondary to ATN secondary to hypovolemia and further worsened with the use of diuretic and angiotensin receptor paul. Creatinine 2.76 on admission and was 2.4 yesterday. Prior records show creatinine of 1.2 in December 2018. UA fairly benign. No hydronephrosis noted on kidney ultrasound. 2. Rule out chronic kidney disease. Creatinine 1.2 in December 2018. 3. Diabetes mellitus. 4. Syncope secondary to hypovolemia and antihypertensives. Orthostatics negative today. 5. Anemia. Rule out iron deficiency. 6. Benign hypertension. Stable. Plan: Maintain IV fluids. Continue to hold diuretics and ARB. Resume amlodipine his blood pressures staying above 135/80. Continue to monitor renal function and urine output.
[2023-04-02 09:36] LABS: Urine Creatinine 54.8 mg/dL (39.0-259.0)
[2023-04-02 10:21] LABS: BUN/Creat Ratio 35.33 Ratio (12.00-20.00); Blood Urea Nitrogen 63.6 mg/dL (9.0-27.0); Calcium 8.8 mg/dL (8.7-10.3); Carbon Dioxide 22.8 mmol/L (21.6-31.8); Chloride 110 mmol/L (96-109); Glucose 129 mg/dL (70-110); Magnesium 2.3 mg/dL (1.5-2.4); Potassium 4.6 mmol/L (3.5-5.5); Sodium 143 mmol/L (135-145)
[2023-04-02 11:53] LABS: Glucose,Whole Blood 294 mg/dL (70-110)
--- NOTE | 2023-04-02 15:20 | P.PN ---
Subjective Progress Note Date: 04/02/23 This is a pleasant 67-year-old male with medical history of diabetes mellitus, hypertension, renal disease, thyroid disease, hyperlipidemia, obesity, gout, history of aortic valve replacement back in 1999 and has been maintained on Coumadin since. Patient presents to the hospital with syncopal episode states that he was out yesterday riding on a [id number] and had been to a couple bars with some friends he had about 3 beers. He reports being at the last restaurant when he just remembers waking up he does not remember happened prior to the syncopal episode. He denies hitting his head. He has no chest pain or shortness of breath and dizziness or lightheadedness. Patient does have elevated creatinine on admission 2.67 states that this has been increasing outpatient he has a maintained on hydralazine and Norvasc with a normotensive blood pressure on admission. He is set up to see Dr. Wilhelm with nephrology outpatient in May. Additionally he has been having decreased hemoglobin w ith concern for a possible bleed does not report any black stool tarry stool or bloody emesis. Outpatient EGD was recommended by Dr. Shilpa Hong however his broom stitcher Dr. Marti he did not clear the patient to stop his Coumadin for the procedure and patient is set up to have this EGD done at [facility] on . Patient does follow with his broom stitcher every 6 months he has an appointment scheduled for the beginning of June. Patient was admitted to the hospital under medicine we will recommend to consult nephrology patient was started on IV normal saline for hydration. 04/02/2023 Patient is evaluated today sitting up at the bedside. No acute events overnight. Renal function improving with creatinine down to 1.8. Nephrology following. Renal ultrasound done showing no evidence for obstructive uropathy, nonobstructive 0.7 cm right renal calculus, there is medical renal disease. Patient continues on normal saline at 75 mls/hr. Review of Systems Constitutional: Denied any fatigue denied any fever. Cardio vascular: denied any chest pain, palpitations Gastrointestinal: denied any nausea, vomiting, diarrhea Pulmonary: Denied any shortness of breath cough Neurologic denied any new focal deficits All inpatient medications were reviewed and appropriate changes in these m edications as dictated in the interval history and assessment and plan. PHYSICAL EXAMINATION: GENERAL: The patient is alert and oriented x3, not in any acute distress. Well developed, well nourished. HEENT: Pupils are round and equally reacting to light. EOMI. No scleral icterus. No conjunctival pallor. Normocephalic, atraumatic. No pharyngeal erythema. No thyromegaly. CARDIOVASCULAR: S1 and S2 present. No murmurs, rubs, or gallops. PULMONARY: Chest is clear to auscultation, no wheezing or crackles. ABDOMEN: Soft, nontender, nondistended, normoactive bowel sounds. No palpable organomegaly. MUSCULOSKELETAL: No joint swelling or deformity. EXTREMITIES: No cyanosis, clubbing, or pedal edema. NEUROLOGICAL: Gross neurological examination did not reveal any focal deficits. SKIN: No rashes. Assessment Acute kidney injury prerenal/ATN likely due to acute dehydration and medication affect, baseline creatinine appears to be about 1.2, currently 2.76 on admission Creatinine down to 1.8. Syncopal episode likely due to orthostatic changes, patient had been drinking alcohol and had not been drinking enough water. He is also on multiple blood pressure medications Diabetes Mellitus type 2 insulin dependent Hypothyroidism Hx hyperlipidemia Hx hypertension Hx of aortic valve replacement anticoagulated with warfarin INR 2.5 GI prophylaxis Full Code Plan Continue normal saline at 75 mls/hr. Nephrology consultation Follow up labs in AM The impression and plan of care has been dictated by Melissa Martinez, Nurse Practitioner as directed. Dr. Aly MD I have performed a history and physical examination and medical decision making of this patient, discussed the same with the dictator, and agree with the dictators assessment and plan as written, documented as a scribe. Based on total visit time, I have performed more than 50% of this visit. Objective - Vital Signs Vital signs: Vital Signs Temp 98.0 F 04/02/23 07:00 Pulse 82 04/02/23 08:53 Resp 16 04/02/23 08:53 BP 146/63 04/02/23 08:53 Pulse Ox 97 04/02/23 08:53 FiO2 Intake & Output 04/01/23 04/02/23 04/02/23 18:59 06:59 18:59 Intake Total 954 500 118 Output Total 1000 550 550 Balance -46 -50 -432 Intake: Intake, IV Titration 600 Amount Sodium Chloride 0.9% 1, 600 000 ml @ 75 mls/hr IV . [id number] [facility] Rx#:[id number] Oral 354 500 118 Output: Urine 500 550 550 Post Void Residual 500 Other: Voiding Method Toilet - Labs CBC & Chem 7: 04/01/23 05:37 04/02/23 05:52 Labs: Abnormal Lab Results - Last 24 Hours (Table) 04/01/23 04/01/23 04/01/23 Range/Units 05:37 05:37 11:27 PT 28.2 H (9.9-11.9) sec INR 2.59 H (0.93-1.11) sec Chloride (96-109) mmol/L BUN (9.0-27.0) mg/dL Creatinine (0.6-1.5) mg/dL Est GFR (CKD-EPI) (>=60) BUN/Creatinine Ratio (12.00-20.00) Ratio Glucose (70-110) mg/dL POC Glucose (mg/dL) 243 H (70-110) mg/dL Hemoglobin A1c 7.4 H (<=6.0) % Urine Protein (Negative) Ur Random Microalbumin (0.0-1.9) mg/dL Microalb/Creat Ratio (0-30) mg/g Cr 04/01/23 04/01/23 04/01/23 Range/Units 16:20 16:20 17:39 PT (9.9-11.9) sec INR (0.93-1.11) sec Chloride (96-109) mmol/L BUN (9.0-27.0) mg/dL Creatinine (0.6-1.5) mg/dL Est GFR (CKD-EPI) (>=60) BUN/Creatinine Ratio (12.00-20.00) Ratio Glucose (70-110) mg/dL POC Glucose (mg/dL) 196 H (70-110) mg/dL Hemoglobin A1c (<=6.0) % Urine Protein Trace H (Negative) Ur Random Microalbumin 9.5 H (0.0-1.9) mg/dL Microalb/Creat Ratio 173 H (0-30) mg/g Cr 04/01/23 04/02/23 04/02/23 Range/Units 20:36 05:52 05:55 PT (9.9-11.9) sec INR (0.93-1.11) sec Chloride 110 H (96-109) mmol/L BUN 63.6 H (9.0-27.0) mg/dL Creatinine 1.8 H (0.6-1.5) mg/dL Est GFR (CKD-EPI) 40 L (>=60) BUN/Creatinine Ratio 35.33 H (12.00-20.00) Ratio Glucose 129 H (70-110) mg/dL POC Glucose (mg/dL) 315 H 141 H (70-110) mg/dL Hemoglobin A1c (<=6.0) % Urine Protein (Negative) Ur Random Microalbumin (0.0-1.9) mg/dL Microalb/Creat Ratio (0-30) mg/g Cr Assessment and Plan Time with Patient: Less than 30
[2023-04-02 16:50] LABS: INR 1.8 (<1.2); Prothrombin Time 17.4 sec (9.0-12.0)
[2023-04-02 17:11] LABS: Glucose,Whole Blood 229 mg/dL (70-110)
[2023-04-02] MEDS ORDERED: WARFARIN 5 MG TAB PO ONE (18:00)
[2023-04-02 20:59] LABS: Glucose,Whole Blood 267 mg/dL (70-110)
[2023-04-02] MEDS ORDERED: INSULIN DETEMIR (LEVEMIR) 100 UNIT/ML SYR SQ SCH (21:00)
[2023-04-03 06:04] LABS: Glucose,Whole Blood 115 mg/dL (70-110)
[2023-04-03] MEDS: SODIUM CHLORIDE 0.9% 1,000 ML IV SCH (06:04)
[2023-04-03] MEDS: INSULIN ASPART (NovoLOG) 100 UNIT/ML VIAL SQ SCH ×2 (06:04→12:35)
[2023-04-03 08:52] VITALS: BP 142/65; PULSE 79; RESP 16; TEMP 98.2
[2023-04-03] MEDS ORDERED: INSULIN DETEMIR (LEVEMIR) 100 UNIT/ML SYR SQ SCH (09:00)
[2023-04-03] MEDS: MONTELUKAST 10 MG TAB PO SCH (09:05)
[2023-04-03] MEDS: PRAVASTATIN SODIUM 20 MG TAB PO SCH (09:05)
[2023-04-03] MEDS: LABETALOL 100 MG TAB PO SCH (09:05)
[2023-04-03] MEDS: LEVOTHYROXINE 25 MCG TAB PO SCH (09:05)
[2023-04-03] MEDS: FAMOTIDINE 20 MG TAB PO SCH (09:05)
[2023-04-03] MEDS: allopurinoL 300 MG TAB PO SCH (09:05)
--- NOTE | 2023-04-03 10:09 | P.PN ---
Subjective Patient is seen in follow-up for acute kidney injury. Creatinine 1.8 yesterday. Has been ambulating. No dizziness or falls. Hemodynamically stable. Orthostatics negative this admission. Oral intake is good. Vital signs are stable. General: No acute distress. HEENT: Head exam is unremarkable. LUNGS: No audible rhonchi or wheezes. HEART: Rate and Rhythm are regular. ABDOMEN: Nontender. EXTREMITITES: No edema. Objective - Vital Signs Vital signs: Vital Signs Temp 98.2 F 04/03/23 07:00 Pulse 79 04/03/23 07:00 Resp 16 04/03/23 07:00 BP 142/65 04/03/23 07:00 Pulse Ox 99 04/03/23 07:00 FiO2 Intake & Output 04/02/23 04/03/23 04/03/23 18:59 06:59 18:59 Intake Total 236 118 Output Total 550 Balance -314 118 Intake: Oral 236 118 Output: Urine 550 Other: Voiding Method Toilet # Voids 1 2 - Labs CBC & Chem 7: 04/01/23 05:37 04/02/23 05:52 Labs: Abnormal Lab Results - Last 24 Hours (Table) 04/02/23 04/02/23 04/02/23 Range/Units 05:52 05:52 11:51 PT (9.0-12.0) sec INR (<1.2) Chloride 110 H (96-109) mmol/L BUN 63.6 H (9.0-27.0) mg/dL Creatinine 1.8 H (0.6-1.5) mg/dL Est GFR (CKD-EPI) 40 L (>=60) BUN/Creatinine Ratio 35.33 H (12.00-20.00) Ratio Glucose 129 H (70-110) mg/dL POC Glucose (mg/dL) 294 H (70-110) mg/dL Hemoglobin A1c 7.2 H (<=6.0) % 04/02/23 04/02/23 04/02/23 Range/Units 15:53 17:10 20:58 PT 17.4 H (9.0-12.0) sec INR 1.8 H (<1.2) Chloride (96-109) mmol/L BUN (9.0-27.0) mg/dL Creatinine (0.6-1.5) mg/dL Est GFR (CKD-EPI) (>=60) BUN/Creatinine Ratio (12.00-20.00) Ratio Glucose (70-110) mg/dL POC Glucose (mg/dL) 229 H 267 H (70-110) mg/dL Hemoglobin A1c (<=6.0) % 04/03/23 Range/Units 06:02 PT (9.0-12.0) sec INR (<1.2) Chloride (96-109) mmol/L BUN (9.0-27.0) mg/dL Creatinine (0.6-1.5) mg/dL Est GFR (CKD-EPI) (>=60) BUN/Creatinine Ratio (12.00-20.00) Ratio Glucose (70-110) mg/dL POC Glucose (mg/dL) 115 H (70-110) mg/dL Hemoglobin A1c (<=6.0) % Assessment and Plan Plan: Assessment: 1. Acute kidney injury secondary to ATN secondary to hypovolemia and further worsened with the use of diuretic and angiotensin receptor paul. Creatinine 2.76 on admission and was 1.8 yesterday. Prior records show creatinine of 1.2 in December 2018. UA fairly benign. No hydronephrosis noted on kidney ultrasound. 2. Rule out chronic kidney disease. Creatinine 1.2 in December 2018. 3. Diabetes mellitus. 4. Syncope secondary to hypovolemia and antihypertensives. Orthostatics negative this admission. 5. Anemia. Rule out iron deficiency. 6. Benign hypertension. Stable. Plan: Hep-Lock IV fluids. Continue to hold diuretics and ARB. Resume amlodipine. Follow-up iron studies. Continue to monitor renal function and urine output.
[2023-04-03] MEDS ORDERED: amLODIPine 5 MG TAB PO SCH (10:15)
[2023-04-03 11:44] LABS: Blood Urea Nitrogen 43.4 mg/dL (9.0-27.0); Calcium 8.9 mg/dL (8.7-10.3); Carbon Dioxide 23.2 mmol/L (21.6-31.8); Chloride 111 mmol/L (96-109); Glucose 98 mg/dL (70-110); Potassium 4.4 mmol/L (3.5-5.5); Sodium 143 mmol/L (135-145)
[2023-04-03 11:54] LABS: INR 1.55 sec (0.93-1.11); Prothrombin Time 17.2 sec (9.9-11.9)
[2023-04-03 12:24] LABS: Glucose,Whole Blood 216 mg/dL (70-110)
[2023-04-03] MEDS ORDERED: WARFARIN 3 MG TAB PO ONE (15:00)
[2023-04-03 16:52] LABS: % Iron Saturation 31.47 (15.00-50.00)
== END 2023-04-03 14:54 | disposition home or self-care (01) ==
LOC: EC 16:26 → 6NMEDSUR 19:40
PROVIDERS: ADMIT Internal Medicine; ATTEND Internal Medicine
DX: R55 Syncope and collapse (principal); R79.89 Other specified abnormal findings of blood chemistry; N17.9 Acute kidney failure, unspecified; D63.1 Anemia in chronic kidney disease; I12.9 Hypertensive chronic kidney disease with stage 1 through stage 4 chronic kidney disease, or unspecified chronic kidney disease; N18.9 Chronic kidney disease, unspecified; E11.22 Type 2 diabetes mellitus with diabetic chronic kidney disease; E78.5 Hyperlipidemia, unspecified; E03.9 Hypothyroidism, unspecified; E66.9 Obesity, unspecified; Z68.33 Body mass index [BMI] 33.0-33.9, adult; Z95.2 Presence of prosthetic heart valve; Z79.4 Long term (current) use of insulin; Z79.899 Other long term (current) drug therapy; Z79.01 Long term (current) use of anticoagulants
CPT/HCPCS: 96360; 96361 ×2; 96372 ×3; 99285; 36415; 93005; 85379; 80053 ×2; 80048 ×2; 82728; 83540; 83550; 83735 ×3; 84484 ×2; 85025 ×2; 85610 ×4; 85730; 81003; 82043; 82570; 83036 ×2; 71046; 76770; 70450; G0378 ×5; G0480; 80320